=== PATIENT | female | born 1995 | race Caucasian/White ===

== ENCOUNTER 2018-01-23 17:59 | Emergency (ER) | payer OTHER ==
[~2018-01-23] VITALS: Ht 167.6 cm; Wt 126.0 kg
[~2018-01-23 17:59] MED LIST: CYMBALTA60 MG PO; SPRINTEC1 EACH PO; TRAMADOL HCL50 MG PO; ZOFRAN4 MG PO
[2018-01-23 18:28] LABS: HEMATOCRIT 39.2 % (36.0-46.0); HEMOGLOBIN 13.5 G/DL (11.9-15.5); MCH 29.7 PG (29.0-34.0); MCHC 34.4 G/DL (30.0-36.0); MCV 86.3 FL (83-99); NRBC (%) 0.5 /100 WBC (0-0); PLATELET COUNT 295 K/uL (156-360); RBC DIS.WIDTH-CV 12.9 % (11.8-14.6); RBC DIS.WIDTH-SD 40.2 % (39-53); RED BLOOD COUNT 4.54 M/uL (3.80-5.20); WHITE BLOOD COUNT 7.9 K/uL (4.1-10.2)
[2018-01-23 18:39] LABS: ALBUMIN 4.4 g/dL (3.2-4.8); CHLORIDE 106 mEq/L (99-109); POTASSIUM 3.5 mEq/L (3.7-5.4); SODIUM 139 mEq/L (136-147)
[2018-01-23 18:41] LABS: GLUCOSE 98 mg/dL (70-99); TOTAL PROTEIN 7.2 g/dL (6.4-8.3)
[2018-01-23 18:43] LABS: TOTAL BILIRUBIN 0.6 mg/dL (0.0-1.0)
[2018-01-23 18:45] LABS: ALKALINE PHOSPHATASE 61 IU/L (3-129); CREATININE 0.7 mg/dL (0.6-1.3); GFR ESTIMATE (CALCULATED) > 59 mL/min/
[2018-01-23 18:46] LABS: UREA NITROGEN (BUN) 7 mg/dL (9-23)
[2018-01-23 18:47] LABS: AST (GOT) 21 IU/L (2-34)
[2018-01-23 18:48] LABS: ALT (GPT) 26 IU/L (3-49)
[2018-01-23 19:14] LABS: APPEARANCE SL.HAZY ((CLEAR)); BILIRUBIN NEGATIVE; BLOOD MODERATE; COLOR YELLOW ((YELLOW)); GLUCOSE (STRIP) NEGATIVE; KETONES NEGATIVE; LEUKOCYTES MODERATE; NITRITE NEGATIVE; PROTEIN (STRIP) 30; UROBILINOGEN 0.2 MG/DL (0.2-1.0)
[2018-01-23 19:19] LABS: BACTERIA RARE /HPF; EPITHELIAL CELLS 1+ /HPF; MUCUS 1+ /LPF; UCUL ADDED? YES; WHITE BLOOD CELLS 20-30 /HPF (0-5)
[2018-01-23 19:22] LABS: QUANTITATIVE HCG 18125.7 MIU/ML
[2018-01-23] MEDS ORDERED: KEFLEX500 MG PO (19:39)
[2018-01-23] MEDS ORDERED: ZOFRAN4 MG PO (19:39)
[2018-01-23 20:14] VITALS: BP 121/74
== END 2018-01-23 19:41 | disposition home or self-care (01) ==
LOC: EME 17:59
DX: O23.41 Unspecified infection of urinary tract in pregnancy, first trimester (principal); N39.0 Urinary tract infection, site not specified; O21.9 Vomiting of pregnancy, unspecified; O99.341 Other mental disorders complicating pregnancy, first trimester; F32.9 Major depressive disorder, single episode, unspecified
CPT/HCPCS: 80053; 81003; 84702; 85027; 87086; 99281; 99283; J2405; J7030